=== PATIENT | female | born 1990 | race Caucasian/White ===

== ENCOUNTER 2016-11-17 12:48 | Emergency (ER) | payer OTHER ==
[~2016-11-17] VITALS: Wt 62.0 kg
--- NOTE | 2016-11-17 14:57 | RADRPT ---
PROCEDURE: XR Chest. CLINICAL INDICATION: chest pain, cough TECHNIQUE: Single frontal view of the chest was obtained COMPARISON: None FINDINGS: The heart and mediastinum are within normal limits. The lungs are clear. There is no pleural effusion or pneumothorax. RPTAT: AA IMPRESSION: No acute disease. .Yo Sweeney MD, MD Date Time Electronically viewed and signed by .Yo Sweeney MD, on 11/17/2016 14:57 .S/
[2016-11-17] MEDS ORDERED: LORA10TA3 PO (15:08)
[2016-11-17] MEDS ORDERED: SODI30SP2 NS (15:08)
[2016-11-17] MEDS ORDERED: BEN25 PO (15:08)
--- NOTE | 2016-11-17 15:15 | ERD ---
ER Documentation Chief Complaint Date/Time DATE: 11/17/16 TIME: 15:11 Chief Complaint SOB, CONGESTION, COUGH HPI This is a 26-year-old female with past medical history for asthma, presenting to emergency department with cough, nasal congestion, headache and shortness of breath 5 days. Patient states she has a dry nonproductive cough. Patient states she has rhinitis, rhinorrhea nasal congestion with headache. Patient states at times she feels short of breath especially with cough. No sore throat or difficulty swallowing. Patient has tactile fevers intermittently. No chest pain, chest pressure or tightness. No sick contacts. ROS All systems reviewed and are negative except as per history of present illness. Medications Home Meds Active Scripts Loratadine* (Loratadine*) 10 Mg Tablet, 10 MG PO DAILY, #30 TAB Prov:MICAELA ANAND NP 11/17/16 Diphenhydramine Hcl* (Benadryl*) 25 Mg Cap, 25 MG PO Q6, #10 CAP Prov:MICAELA ANAND NP 11/17/16 Sodium Chloride (Saline Nasal [place]) 30 Ml [place], 30 ML NS BID, #1 SPRAY Prov:MICAELA ANAND NP 11/17/16 Allergies Allergies: Coded Allergies: No Known Drug Allergies (Verified Allergy, Mild, 04/19/09) PMhx/Soc Medical and Surgical Hx: pt denies Medical Hx, pt denies Surgical Hx History of Surgery: No Hx Neurological Disorder: No Hx Respiratory Disorders: Yes (ASTHMA) Hx Cardiac Disorders: No Hx Miscellaneous Medical Probl: No Hx Alcohol Use: No Hx Substance Use: No Hx Tobacco Use: No Smoking Status: Never smoker Physical Exam Vitals Vital Signs Date Time Temp Pulse Resp B/P Pulse Ox O2 Delivery O2 Flow Rate FiO2 11/17/16 12:53 98.5 99 17 121/81 98 Physical Exam Const: No acute distress, alert Head: Atraumatic Eyes: Normal Conjunctiva ENT: Normal External Ears, Nose and Mouth. No erythema or exudates posterior pharynx. TMs normal bilaterally. No mastoid tenderness. Neck: Full range of motion..~ No meningismus. Resp: Clear to auscultation bilaterally. No wheezing, rhonchi or crackles. No stridor or labored breathing. No intercostal retractions. Patient is talking in complete sentences. Cardio: Regular rate and rhythm, no murmurs Abd: Soft, non tender, non distended. Normal bowel sounds Skin: No petechiae or rashes Back: No midline or flank tenderness Ext: No cyanosis, or edema Neur: Awake and alert Psych: Normal Mood and Affect Procedures/MDM MDM: This is a 26-year-old female presenting to the emergency department with cough, nasal Congestion, rhinorrhea, rhinitis and intermittent shortness of breath 5 days. On initial exam patient is calm and cooperative and appears in no acute distress. Patient is afebrile and vital signs are stable. No signs or symptoms of respiratory distress. Oxygen saturation 90% on room air and respirations 17/min. No wheezing. Since patient has had tactile fevers intermittently and cough has been for the last 5 days chest x-ray was ordered. Chest x-ray reviewed by radiologist as no acute findings. Low suspicion for pneumonia, pleural effusion, pneumothorax or acute NM. Differential diagnosis includes but not limited to URI, influenza, otitis media , otitis externa, asthma exacerbation, croup, bronchitis, bronchiolitis and costochondritis. Patient is appropriate for outpatient management and will be given prescription for saline nasal spray, Benadryl and loratadine. Instructed patient to follow- up with primary care provider in the next 2-3 days for reassessment and additional management. Return to ED for any high fever, chest pain, difficulty breathing, shortness breath, wheezing, vomiting, diarrhea, abdominal pain or any new or worsening symptoms. Patient verbalizes understanding. All questions answered at discharge. Disclaimer: Inadvertent spelling and grammatical errors are likely due to EHR/ dictation software use and do not reflect on the overall quality of patient care. Also, please note that the electronic time recorded on this note does not necessarily reflect the actual time of the patient encounter. Departure Diagnosis: Primary Impression: URI (upper respiratory infection) URI type: unspecified viral URI Qualified Code: J06.9 - Viral upper respiratory tract infection Condition: Stable Patient Instructions: Uri, Viral, No Abx (Adult) Referrals: COMM[facility]ITY CLINICS YOU HAVE RECEIVED A MEDICAL SCREENING EXAM AND THE RESULTS INDICATE THAT YOU DO NOT HAVE A CONDITION THAT REQUIRES URGENT TREATMENT IN THE EMERGENCY DEPARTMENT. FURTHER EVALUATION AND TREATMENT OF YOUR CONDITION CAN WAIT UNTIL YOU ARE SEEN IN YOUR DOCTORS OFFICE WITHIN THE NEXT 1-2 DAYS. IT IS YOUR RESPONSIBILITY TO MAKE AN APPOINTMENT FOR FOLOW-UP CARE. IF YOU HAVE A PRIMARY DOCTOR --you should call your primary doctor and schedule an appointment IF YOU DO NOT HAVE A PRIMARY DOCTOR YOU CAN CALL OUR PHYSICIAN REFERRAL HOTLINE AT IF YOU CAN NOT AFFORD TO SEE A PHYSICIAN YOU CAN CHOSE FROM THE FOLLOWING [facility] [address] [facility] [address] [email or web address] [address] [facility] [address] [facility] [address] [facility] [facility] [address] [facility] YOU HAVE RECEIVED A MEDICAL SCREENING EXAM AND THE RESULTS INDICATE THAT YOU DO NOT HAVE A CONDITION THAT REQUIRES URGENT TREATMENT IN THE EMERGENCY DEPARTMENT. FURTHER EVALUATION AND TREATMENT OF YOUR CONDITION CAN WAIT UNTIL YOU ARE SEEN IN YOUR DOCTORS OFFICE WITHIN THE NEXT 1-2 DAYS. IT IS YOUR RESPONSIBILITY TO MAKE AN APPOINTMENT FOR FOLOW-UP CARE. IF YOU HAVE A PRIMARY DOCTOR --you should call your primary doctor and schedule and appointment IF YOU DO NOT HAVE A PRIMARY DOCTOR YOU CAN CALL OUR PHYSICIAN REFERRAL HOTLINE AT . IF YOU CAN NOT AFFORD TO SEE A PHYSICIAN YOU CAN CHOSE FROM THE FOLLOWING [facility]: [facility] [address] [place] [address] [facility] [address] [place] [address] [facility] [address] [place] [address] Additional Instructions: Call your primary care doctor TOMORROW for an appointment during the next 2-3 days.See the doctor sooner or return here if your condition worsens before your appointment time. Return to ED for any high fever, chest pain, difficulty breathing, shortness breath, wheezing, vomiting, diarrhea, abdominal pain or any new or worsening symptoms. MICAELA ANAND NP Nov 17, 2016 15:15
== END 2016-11-17 15:13 | disposition home or self-care (01) ==
LOC: FTE 12:48
DX: J06.9 Acute upper respiratory infection, unspecified (principal); J45.909 Unspecified asthma, uncomplicated
CPT/HCPCS: 71010; Z7502

== ENCOUNTER 2017-06-24 21:40 | Emergency (ER) | END 2017-06-24 23:43 | disposition home or self-care (01) ==

== ENCOUNTER 2018-05-30 08:39 | Emergency (ER) | payer MEDICAID, OTHER ==
[~2018-05-30] VITALS: Wt 77.0 kg
[~2018-05-30 08:39] MED LIST: ALBU18HF INHALATION; AMOX1TAB10 PO; BEN25 PO; IBUP-1561 PO; LORA10TA3 PO; PSEU120T12 PO; SODI30SP2 NS
[2018-05-30 08:45] VITALS: BP 130/78; PULSE 99; RESP 18
[2018-05-30] MEDS ORDERED: ACETAMINOPHEN 500 MG TAB PO STA (09:04)
[2018-05-30] MEDS ORDERED: IBUPROFEN 800 MG TAB PO ONE (09:30)
[2018-05-30] MEDS ORDERED: PROM6.2515 PO (10:01)
[2018-05-30] MEDS ORDERED: IBUP800T48 PO (10:01)
[2018-05-30] MEDS ORDERED: ACET500C5 PO (10:01)
--- NOTE | 2018-05-30 10:35 | ERD ---
ER Documentation Chief Complaint Chief Complaint flu x 2 days, with fever, couugh, body aches HPI 27-year-old female presenting with cough and fever with body aches times 2 days. Patient has had a sore throat. She has some ear pain. Has a dry cough and diffuse body aches. States that her chest hurts when she coughs. Has not taken medications. Medical history is asthma. Surgical history cholecystectomy. Social history denies. NKDA ROS All systems reviewed and are negative except as per history of present illness. Medications Home Meds Active Scripts Promethazine Hcl* (Promethazine Hcl* Syrup) 6.25 Mg/5 Ml Syrup, 6.25 MG PO Q6H PRN for COUGH, #100 ML Prov:NILSA JAFFE PA-C 05/30/18 Ibuprofen* (Motrin*) 800 Mg Tab, 800 MG PO Q6, #30 TAB Prov:NILSA JAFFE PA-C 05/30/18 Acetaminophen* (Tylophen*) 500 Mg Capsule, 2 CAP PO Q8H PRN for PAIN AND OR ELEVATED TEMP, #20 CAP Prov:NILSA JAFFE PA-C 05/30/18 Albuterol Sulfate* (Ventolin HFA*) 18 Gm Hfa.aer.ad, 2 PUFF INHALATION Q4H, #1 INHALER Prov:ZORAN MASON PA-C 06/24/17 Amoxicillin/Potassium Clav (Amox-Clav 875-125 mg Tablet) 875-125 mg Tab, 1 TAB PO BID for 10 Days, #20 TAB Prov:ZORAN MASON PA-C 06/24/17 Pseudoephedrine Hcl (Sudafed 12 Hour) 120 Mg Tablet.sa, 120 MG PO DAILY for 7 Days, #7 Prov:ZORAN MASON PA-C 06/24/17 Ibuprofen* (Motrin*) 400 Mg Tab, 400 MG PO Q6H PRN for PAIN AND OR ELEVATED TEMP, #30 TAB Prov:ZORAN MASON PA-C 06/24/17 Loratadine* (Loratadine*) 10 Mg Tablet, 10 MG PO DAILY, #30 TAB Prov:MICAELA ANAND NP 11/17/16 Diphenhydramine Hcl* (Benadryl*) 25 Mg Cap, 25 MG PO Q6, #10 CAP Prov:MICAELA ANAND PUBLISHER ASSISTANT 11/17/16 Sodium Chloride (Saline Nasal [place]) 30 Ml [place], 30 ML NS BID, #1 SPRAY Prov:MICAELA ANAND NP 11/17/16 Allergies Allergies: Coded Allergies: No Known Drug Allergies (Verified Allergy, Mild, 04/19/09) PMhx/Soc History of Surgery: Yes (cholecystectomy) Anesthesia Reaction: No Hx Neurological Disorder: No Hx Respiratory Disorders: Yes (ASTHMA) Hx Cardiac Disorders: No Hx Psychiatric Problems: No Hx Miscellaneous Medical Probl: No Hx Alcohol Use: No Hx Substance Use: No Hx Tobacco Use: No Smoking Status: Never smoker FmHx Family History: No diabetes, No coronary disease, No other Physical Exam Vitals Vital Signs Date Temp Pulse Resp B/P (MAP) Pulse Ox O2 O2 Flow FiO2 Time Delivery Rate 05/30/18 99.1 10:25 05/30/18 101.9 99 18 130/78 99 08:45 (95) Physical Exam GENERAL: The patient is well-appearing, well-nourished, in no acute distress HEENT: Atraumatic. Conjunctivae are pink. Pupils equal, round, and reactive to light. There is no scleral icterus. Tympanic membranes clear bilaterally. Oropharynx clear. NECK: C-spine is soft and supple. There is no meningismus. There is no cervical lymphadenopathy. CHEST: Clear to auscultation bilaterally. There are no rales, wheezes or rhonchi. HEART: Regular rate and rhythm. No murmurs, clicks, rubs or gallops. ABDOMEN:Soft, nontender and nondistended. Good bowel sounds. No rebound or guarding. No gross peritonitis. No gross organomegaly or masses. Results 24 hrs Current Medications Medications Dose Sig/Jey Start Time Status Last (Trade) Ordered Route PRN Stop Time Admin Dose Reason Admin Ibuprofen 800 mg ONCE ONCE 05/30/18 DC 05/30/18 (Motrin) PO 09:30 09:11 05/30/18 09:31 1,000 mg ONCE STAT 05/30/18 DC 05/30/18 Acetaminophen PO 09:04 09:10 (Tylenol 05/30/18 09:05 Tab) Procedures/MDM ER course: Influenza A positive. DIAGNOSTIC IMAGING REPORT Patient: CARSONNOAH PATEL : 1990 Age: 27 Sex: F [id number] DOS: 05/30/18 0904 Ordering MD: SENIA JAFFE PA-C Location: [facility] Room/Bed: PROCEDURE: XR Chest. CLINICAL INDICATION: Cough with fever TECHNIQUE: Single frontal view of the chest was obtained COMPARISON: CR CHEST 11/17/2016 FINDINGS: The heart and mediastinum are within normal limits. The lungs are clear. There is no pleural effusion or pneumothorax. RPTAT: AA IMPRESSION: No acute disease. MDM: 27-year-old female presenting with fever. Patient has influenza. I have low suspicion for pneumonia. I have low suspicion for meningitis or sepsis. I have low suspicion for bacterial HENT infection. Patient will be discharged with supportive medications. Patient is told symptoms change or worsen to return immediately to the ER. All questions answered at discharge Departure Diagnosis: Primary Impression: Influenza Condition: Stable Patient Instructions: Influenza (Adult) Referrals: [facility] YOU HAVE RECEIVED A MEDICAL SCREENING EXAM AND THE RESULTS INDICATE THAT YOU DO NOT HAVE A CONDITION THAT REQUIRES URGENT TREATMENT IN THE EMERGENCY DEPARTMENT. FURTHER EVALUATION AND TREATMENT OF YOUR CONDITION CAN WAIT UNTIL YOU ARE SEEN IN YOUR DOCTORS OFFICE WITHIN THE NEXT 1-2 DAYS. IT IS YOUR RESPONSIBILITY TO MAKE AN APPOINTMENT FOR FOLOW-UP CARE. IF YOU HAVE A PRIMARY DOCTOR --you should call your primary doctor and schedule an appointment IF YOU DO NOT HAVE A PRIMARY DOCTOR YOU CAN CALL OUR PHYSICIAN REFERRAL HOTLINE AT IF YOU CAN NOT AFFORD TO SEE A PHYSICIAN YOU CAN CHOSE FROM THE FOLLOWING [facility] [address] [facility] [address] [facility] [address] [facility] [address] [facility] [address] [facility]. [facility]. [address] Additional Instructions: FOLLOW UP WITH YOUR PRIMARY CARE PHYSICIAN TOMORROW.Return to this facility if you are not improving as expected. NILSA JAFFE PA-C May 30, 2018 10:35
== END 2018-05-30 10:26 | disposition home or self-care (01) ==
LOC: FTE 08:39
DX: J10.1 Influenza due to other identified influenza virus with other respiratory manifestations (principal); J45.909 Unspecified asthma, uncomplicated
CPT/HCPCS: 71045; 87400; Z7502; Z7610

== ENCOUNTER 2018-09-15 11:05 | Emergency (ER) | payer MEDICAID, OTHER ==
[~2018-09-15] VITALS: Ht 157.5 cm; Wt 68.0 kg
[~2018-09-15 11:05] MED LIST changes: +ACET500C5 PO; +IBUP800T48 PO; +PROM6.2515 PO
[2018-09-15 11:08] VITALS: BP 120/68; PULSE 72; RESP 16; Ht 157.5 cm; Wt 68.0 kg
[2018-09-15] MEDS ORDERED: ACETAMINOPHEN 500 MG TAB PO STA (12:59)
--- NOTE | 2018-09-15 13:03 | ERD ---
ER Documentation Chief Complaint Chief Complaint pt is bib self with c/o abd pain approx 7-8 wks preg HPI 28-year-old female approximately 7 weeks is here complaining of pelvic pain that began 2 days ago that she describes as cramping. No vaginal bleeding. No dysuria hematuria but she does have increased urinary frequency. No nausea or vomiting. No fevers. ROS All systems reviewed and are negative except as per history of present illness. Medications Home Meds Active Scripts Promethazine Hcl* (Promethazine Hcl* Syrup) 6.25 Mg/5 Ml Syrup, 6.25 MG PO Q6H PRN for COUGH, #100 ML Prov:NILSA JAFFE PA-C 05/30/18 Ibuprofen* (Motrin*) 800 Mg Tab, 800 MG PO Q6, #30 TAB Prov:NILSA JAFFE PA-C 05/30/18 Acetaminophen* (Tylophen*) 500 Mg Capsule, 2 CAP PO Q8H PRN for PAIN AND OR ELEVATED TEMP, #20 CAP Prov:NILSA JAFFE PA-C 05/30/18 Albuterol Sulfate* (Ventolin HFA*) 18 Gm Hfa.aer.ad, 2 PUFF INHALATION Q4H, #1 INHALER Prov:ZORAN MASON PA-C 06/24/17 Amoxicillin/Potassium Clav (Amox-Clav 875-125 mg Tablet) 875-125 mg Tab, 1 TAB PO BID for 10 Days, #20 TAB Prov:ZORAN MASON PA-C 06/24/17 Pseudoephedrine Hcl (Sudafed 12 Hour) 120 Mg Tablet.sa, 120 MG PO DAILY for 7 Days, #7 Prov:ZORAN MASON PA-C 06/24/17 Ibuprofen* (Motrin*) 400 Mg Tab, 400 MG PO Q6H PRN for PAIN AND OR ELEVATED TEMP, #30 TAB Prov:ZORAN MASON PA-C 06/24/17 Loratadine* (Loratadine*) 10 Mg Tablet, 10 MG PO DAILY, #30 TAB Prov:MICAELA ANAND NP 11/17/16 Diphenhydramine Hcl* (Benadryl*) 25 Mg Cap, 25 MG PO Q6, #10 CAP Prov:MICAELA ANAND NP 11/17/16 Sodium Chloride (Saline Nasal [place]) 30 Ml [place], 30 ML NS BID, #1 SPRAY Prov:MICAELA ANAND HIGHWAY PAINTER 11/17/16 Allergies Allergies: Coded Allergies: No Known Drug Allergies (Verified Allergy, Mild, 04/19/09) PMhx/Soc History of Surgery: Yes (cholecystectomy) Anesthesia Reaction: No Hx Neurological Disorder: No Hx Respiratory Disorders: Yes (ASTHMA) Hx Cardiac Disorders: No Hx Psychiatric Problems: No Hx Miscellaneous Medical Probl: No Hx Alcohol Use: No Hx Substance Use: No Hx Tobacco Use: No FmHx Family History: No diabetes Physical Exam Vitals Vital Signs Date Temp Pulse Resp B/P (MAP) Pulse Ox O2 O2 Flow FiO2 Time Delivery Rate 09/15/18 98.3 72 16 120/68 99 11:08 (85) Physical Exam INITIAL VITAL SIGNS: Reviewed by me RESPIRATORY: Clear to auscultation bilaterally. Symmetric chest wall rise. No wheezing or rales. No accessory muscle use. CV: Regular rate and rhythm. No murmurs, rubs, or gallops. ABDOMEN: Soft, non-distended. Nontender. Negative [place]. Negative McBurneys point tenderness. No CVA tenderness bilaterally. No guarding. No rebound. Result Diagram: 09/15/18 1126 Results 24 hrs Laboratory Tests Test 09/15/18 11:26 White Blood Count 8.4 10^3/ul Red Blood Count 4.31 10^6/ul Hemoglobin 12.8 g/dl Hematocrit 37.1 % Mean Corpuscular Volume 86.1 fl Mean Corpuscular Hemoglobin 29.7 pg Mean Corpuscular Hemoglobin Concent 34.5 g/dl Red Cell Distribution Width 13.1 % Platelet Count 353 10^3/UL Mean Platelet Volume 9.3 fl Immature Granulocytes % 0.200 % Neutrophils % 69.7 % Lymphocytes % 23.1 % Monocytes % 6.1 % Eosinophils % 0.4 % Basophils % 0.5 % Nucleated Red Blood Cells % 0.0 /100WBC Immature Granulocytes # 0.020 10^3/ul Neutrophils # 5.9 10^3/ul Lymphocytes # 1.9 10^3/ul Monocytes # 0.5 10^3/ul Eosinophils # 0.0 10^3/ul Basophils # 0.0 10^3/ul Nucleated Red Blood Cells # 0.0 10^3/ul Urine Color YELLOW Urine Clarity CLEAR Urine pH 6.0 Urine Specific [place] 1.015 Urine Ketones NEGATIVE mg/dL Urine Nitrite NEGATIVE mg/dL Urine Bilirubin NEGATIVE mg/dL Urine Urobilinogen NEGATIVE mg/dL Urine Leukocyte Esterase NEGATIVE Erik/ul Urine Microscopic RBC 3 /HPF Urine Microscopic WBC 0 /HPF Urine Hemoglobin 1+ mg/dL Urine Glucose NEGATIVE mg/dL Urine Total Protein NEGATIVE mg/dl Beta HCG, Quantitative 86622.0 mIU/ml Current Medications Medications Dose Sig/Jey Start Time Status Last (Trade) Ordered Route PRN Stop Time Admin Dose Reason Admin 1,000 mg ONCE STAT 09/15/18 DC Acetaminophen PO 12:59 (Tylenol 09/15/18 13:00 Tab) Procedures/MDM Patient has pelvic pain during . No bleeding. Laboratory analysis shows no evidence of acute emergent abnormality. No evidence of significant leukocytosis suggesting systemic infection or severe anemia. No evidence of acute renal or liver failure, no evidence of severe alkalosis or acidosis. Ultrasound shows Single live intrauterine with an estimated gestational age of 7 weeks and 2 days, based on ultrasound measurements. Focal area of subchorionic hemorrhage.Left ovarian hemorrhagic corpus luteum cyst. Patient given Tylenol here and she can take Tylenol at home. She was given copies of all her labs and ultrasound report so she can follow-up with [employer]. Patient counseled regarding my diagnostic impression and care plan. Prior to discharge all questions answered. Pt agrees with treatment plan and understands strict return precautions. Pt is instructed to follow up with primary care provider within 24-48 hours. Precautionary instructions provided including instructions to return to the ER if not improving or for any worsening or changing symptoms or concerns. Departure Diagnosis: Primary Impression: Pelvic pain complicating Condition: Stable Patient Instructions: Pelvic Pain, Unknown Cause Additional Instructions: Call your primary care doctor TOMORROW for an appointment during the next 1-2 days.See the doctor sooner or return here if your condition worsens before your appointment time. KUNAL PARDO PA-C Sep 15, 2018 13:03
== END 2018-09-15 13:22 | disposition home or self-care (01) ==
LOC: FTE 11:05
DX: O26.891 Other specified pregnancy related conditions, first trimester (principal); R10.2 Pelvic and perineal pain; O99.511 Diseases of the respiratory system complicating pregnancy, first trimester; J45.909 Unspecified asthma, uncomplicated; Z3A.01 Less than 8 weeks gestation of pregnancy
CPT/HCPCS: 36415; 76801; 76817; 81001; 84702; 85025; 86900; 86901; Z7502; Z7610